=== PATIENT | male | born 1940 | race Caucasian/White ===

== ENCOUNTER 2023-03-22 13:00 | Inpatient (IN) | payer MEDICARE ==
[~2023-03-22] VITALS: Ht 165.1 cm; Wt 73.8 kg
[2023-03-22] VITALS (8 sets, daily range): BP systolic 124–133; BP diastolic 58–72; PULSE 89–106; RESP 18–43; TEMP 97.4–97.9; O2SAT 97–99
[~2023-03-22 13:00] MED LIST: AMLO10TA PO; ATOR40TA PO; CARV12.549 PO; CHOL200035 PO; FURO40TA4 PO; GABA-530 PO; GLIP5TAB13 PO; HYDR-3973 PO; INSU100V9 SQ; LISI20TA28 PO; METF-436 PO; POTA-205 PO; RIVA15TA PO; SPIR25TA5 PO
--- NOTE | 2023-03-22 13:10 | NUR ---
ATTEMPT EKG, PT IS TRIPODDING AND UNABLE TO GET AN ACCURATE READ. WILL ATTEMPT AGAIN AFTER BREATHING TREATMENT.
[2023-03-22] MEDS ORDERED: furosemide 20 MG/2 ML vial IV ONE (13:15)
[2023-03-22] MEDS ORDERED: nitroGLYCERIN-Tridil 50MG/D5W 250 ML IV SCH (13:15)
[2023-03-22] MEDS ORDERED: furosemide 10 MG/1 ML 10ml inj IV ONE (13:15)
[2023-03-22 13:29] LABS: BASOPHILS # (AUTO) 0.1 X10'3 (0-0.2); BASOPHILS % (AUTO) 0.4 % (0-1); EOSINOPHILS # (AUTO) 0.3 X10'3 (0-0.9); EOSINOPHILS % (AUTO) 1.8 % (0-6); HEMATOCRIT 44.3 % (42.0-52.0); HEMOGLOBIN 14.3 g/dl (14.0-17.9); LYMPHOCYTES # (AUTO) 0.7 X10'3 (1.1-4.8); LYMPHOCYTES % (AUTO) 4.9 % (21-51); MEAN CORPUSCULAR HEMOGLOBIN 28.9 PG (27.0-31.0); MEAN CORPUSCULAR HGB CONC 32.2 g/dL (33.0-36.5); MEAN CORPUSCULAR VOLUME 89.7 FL (78-98); MEAN PLATELET VOLUME 8.1 FL (7.4-10.4); MONOCYTES # (AUTO) 0.7 X10'3 (0-0.9); MONOCYTES % (AUTO) 4.7 % (2-12); NEUTROPHILS # (AUTO) 12.5 X10'3 (1.8-7.7); NEUTROPHILS % (AUTO) 88.2 % (42-75); PLATELET COUNT 263 X10'3 (140-440); RED BLOOD COUNT 4.93 X10'6 (4.70-6.10); RED CELL DISTRIBUTION WIDTH 15.9 % (11.5-14.5); WHITE BLOOD COUNT 14.2 X10'3 (4.5-11.0)
[2023-03-22 13:41] LABS: ALANINE AMINOTRANSFERASE 21 U/L (12-78); ALBUMIN 3.3 G/DL (3.4-5.0); ALBUMIN/GLOBULIN RATIO 0.7 (1.1-1.5); ALKALINE PHOSPHATASE 144 IU/L (46-116); ANION GAP 15 (8-16); ASPARTATE AMINO TRANSFERASE 15 U/L (10-37); BILIRUBIN,TOTAL 1.1 MG/DL (0.1-1.0); BLOOD UREA NITROGEN 41 MG/DL (7-18); BUN/CREATININE RATIO 22.5 (10.0-20.0); CALCIUM 9.6 MG/DL (8.5-10.1); CHLORIDE 99 MMOL/L (99-107); CREATININE 1.82 MG/DL (0.60-1.10); GLUCOSE 308 MG/DL (70-104); POTASSIUM 4.8 MMOL/L (3.5-5.1); SODIUM 137 MMOL/L (135-145); TOTAL PROTEIN 7.8 G/DL (6.4-8.2); eGFR 36 ML/MIN
[2023-03-22] MEDS ORDERED: magnesium 4gm in 100ml NS 100 ML IV PRN (14:10)
[2023-03-22] MEDS ORDERED: acetaminophen 325mg tablet PO PRN ×3 (14:10)
[2023-03-22] MEDS ORDERED: potassium Cl 40MEQ/1/2NS 520ml 520 ML IV PRN (14:10)
[2023-03-22] MEDS ORDERED: magnesium Cl slow-release 64mg tablet PO PRN (14:10)
[2023-03-22] MEDS ORDERED: morphine 4 MG/ML inj SYRINge IV PRN (14:10)
[2023-03-22] MEDS ORDERED: morphine 2 MG/ML inj. syringe IV PRN (14:10)
[2023-03-22] MEDS ORDERED: ondansetron/PF 4mg/2ml inj IV PRN ×2 (14:10)
[2023-03-22] MEDS ORDERED: potassium Cl 20 mEq SR tablet PO PRN ×2 (14:10)
[2023-03-22] MEDS ORDERED: magnesium hydroxide 30ml (MOM) UD suspension PO PRN ×2 (14:10)
[2023-03-22] MEDS ORDERED: LidoCAINE 2% Topical Jelly 11mL syringe TOP ONE (14:10)
[2023-03-22] MEDS ORDERED: magnesium 2GM in 50ml NS 50 ML IV PRN (14:10)
--- NOTE | 2023-03-22 14:43 | NUR ---
attempted to call report was told the nurse is eating lunch at this time.
--- NOTE | 2023-03-22 14:55 | NUR ---
attempted to call report again, stated nurse is still at lunch and no one else is available to take report.
--- NOTE | 2023-03-22 15:02 | NUR ---
ICU NOT ANSWERING
--- NOTE | 2023-03-22 15:10 | NUR ---
NOTIFIED RT, NO ANSWER, LEFT PAGE AND CALLED TWICE
--- NOTE | 2023-03-22 16:22 | NUR ---
Admission status of patient changed from ICU to PCU. Report called to ANISHA Moreno. Transferred patient to room [address] [facility], attached to portable monitor, pt. hemodynamically stable. ANISHA Escamilla at bedside upon transfer.
[2023-03-22] MEDS ORDERED: FURO-149 PO (17:14)
[2023-03-22] MEDS ORDERED: GLIP10TA11 PO (17:14)
[2023-03-22] MEDS ORDERED: METF-438 PO (17:14)
[2023-03-22] MEDS ORDERED: ATOR20TA66 PO (17:21)
[2023-03-22] MEDS ORDERED: RIVA15TA PO (17:21)
[2023-03-22] MEDS ORDERED: POTA-206 PO (17:21)
[2023-03-22] MEDS ORDERED: GABA-530 PO (17:21)
[2023-03-22] MEDS ORDERED: LISI20TA28 PO (17:22)
[2023-03-22] MEDS ORDERED: AMLO10TA13 PO (17:24)
[2023-03-22] MEDS ORDERED: CARV-50 PO (17:24)
[2023-03-22] MEDS ORDERED: SPIR25TA5 PO (17:24)
[2023-03-22] MEDS ORDERED: CHOL400T57 PO (17:24)
[2023-03-22] MEDS ORDERED: INSU100V9 SQ (17:25)
[2023-03-22] MEDS ORDERED: DOCU100C38 PO (17:25)
[2023-03-22] MEDS ORDERED: VITAMIN D3 PO (17:26)
[2023-03-22] MEDS ORDERED: dextrose 50%-water 50ml dispensing syringe IV PRN ×2 (19:10)
[2023-03-22] MEDS ORDERED: MESSAGE TO PHARMACY PO ONE (19:10)
[2023-03-22] MEDS ORDERED: glucagon, human recombinant 1mg kit SUBCUT PRN (19:10)
[2023-03-22] MEDS ORDERED: DEXTROSE 15 GM of carb/4 tabs (each vial/BOTTLE has 4 tablets) PO PRN ×2 (19:10)
[2023-03-22 20:00] LABS: ABG BASE EXCESS -0.3 mmol/L (-2.0-2.0); ABG HCO3 23.5 mmol/L (22.0-26.0); ABG OXYGEN SATURATION 97.8 % (94-97); ABG PCO2 (T) 34.8 mmHg (35.0-48.0); ABG PO2 (T) 100.8 mmHg (75.0-100.0); ALLEN'S TEST Modified; FCOHb 0.6 % (0.0-3.9); FMetHb 0.3 % (0.0-1.5); FO2Hb 96.9 % (94-97); PATIENT TEMPERATURE 36.3; TOTAL HEMOGLOBIN 14.4 G/dl (14.0-17.9)
[2023-03-22] MEDS: docusate sod 100mg capsule PO SCH (20:00)
[2023-03-22] MEDS ORDERED: furosemide 40mg/4ml inj IV ONE (20:00)
[2023-03-22] MEDS: K and/or MAG REPLACEMENT MC SCH (20:00)
[2023-03-22] MEDS: CefTRIAXone 2gm/D5W 50ml BAG 50 ML IV SCH (22:51)
[2023-03-22] MEDS: azithromycin/NS 500mg/250ml 250 ML IV SCH (23:51)
[2023-03-23] VITALS (12 sets, daily range): BP systolic 99–133; BP diastolic 53–72; PULSE 61–108; RESP 21–38; TEMP 97.3–98.1; O2SAT 93–99
[2023-03-23] MEDS: insulin glargine (Lantus) pen - multi-dose SQ SCH ×2 (00:16→21:52)
--- NOTE | 2023-03-23 06:27 | NUR ---
Problems reprioritized. Patient report given, questions answered & plan of care reviewed with Kale RN.
--- NOTE | 2023-03-23 06:27 | NUR ---
Patient in room PCU 3011. I have received report from ASHLEY LANCASTER and had the opportunity to ask questions and assume patient care.
[2023-03-23 06:51] LABS: ALBUMIN 2.8 G/DL (3.4-5.0); ANION GAP 12 (8-16); BLOOD UREA NITROGEN 41 MG/DL (7-18); BUN/CREATININE RATIO 22.2 (10.0-20.0); CALCIUM 9.1 MG/DL (8.5-10.1); CHLORIDE 99 MMOL/L (99-107); CREATININE 1.85 MG/DL (0.60-1.10); GLUCOSE 290 MG/DL (70-104); MAGNESIUM 1.8 MG/DL (1.5-2.4); SODIUM 136 MMOL/L (135-145); TOTAL CARBON DIOXIDE 25.5 MMOL/L (24-32); eGFR 35 ML/MIN
[2023-03-23] MEDS: rivaroxaban 10mg tablet PO SCH (07:15)
[2023-03-23] MEDS: pantoprazole 40mg Tablet.DR PO SCH (07:15)
[2023-03-23] MEDS: docusate sod 100mg capsule PO SCH ×2 (07:15→20:00)
[2023-03-23] MEDS: lisinopril 20mg tablet PO SCH (07:16)
[2023-03-23] MEDS: CefTRIAXone 2gm/D5W 50ml BAG 50 ML IV SCH (07:17)
[2023-03-23] MEDS: azithromycin/NS 500mg/250ml 250 ML IV SCH (07:17)
[2023-03-23] MEDS: furosemide 20 MG/2 ML vial IV SCH ×3 (07:17→20:00)
[2023-03-23] MEDS: K and/or MAG REPLACEMENT MC SCH ×2 (08:00→20:00)
[2023-03-23] MEDS: insulin Lispro (HumaLOG) vial - multi-dose SQ SCH ×3 (08:41→19:32)
[2023-03-23] MEDS: spironolactone 25 MG tablet PO SCH (10:14)
--- NOTE | 2023-03-23 12:36 | NUR ---
DM Consult: Pt hx DM A1C 8.0%; A1C appropriate given advanced age. Addendum: 03/23/23 at [address] Amended: Links added.
--- NOTE | 2023-03-23 18:16 | NUR ---
Problems reprioritized. Patient report given, questions answered & plan of care reviewed with Josh LANCASTER.
[2023-03-24] VITALS (13 sets, daily range): BP systolic 94–160; BP diastolic 54–76; PULSE 55–90; RESP 16–26; TEMP 97.2–98; O2SAT 94–99
[2023-03-24] MEDS: HYDROcodone/acetaminophen 5mg/325mg tablet PO PRN ×3 (01:43→20:12)
--- NOTE | 2023-03-24 04:45 | NUR ---
PT WOKE UP HUNGRY WANTING A P,B,& J. I INFORMED HIM THAT WAS UNAVAILABLE. HE ATE 1 YOGURT, A CHEDDAR CHEESE AND 4 SALTINE CRACKERS.
[2023-03-24 06:09] LABS: BASOPHILS # (AUTO) 0.1 X10'3 (0-0.2); BASOPHILS % (AUTO) 0.5 % (0-1); EOSINOPHILS # (AUTO) 0.2 X10'3 (0-0.9); EOSINOPHILS % (AUTO) 1.8 % (0-6); HEMATOCRIT 37.5 % (42.0-52.0); HEMOGLOBIN 12.5 g/dl (14.0-17.9); LYMPHOCYTES # (AUTO) 1.3 X10'3 (1.1-4.8); LYMPHOCYTES % (AUTO) 10.6 % (21-51); MEAN CORPUSCULAR HEMOGLOBIN 29.6 PG (27.0-31.0); MEAN CORPUSCULAR HGB CONC 33.3 g/dL (33.0-36.5); MEAN CORPUSCULAR VOLUME 88.9 FL (78-98); MONOCYTES % (AUTO) 8.2 % (2-12); NEUTROPHILS # (AUTO) 9.3 X10'3 (1.8-7.7); NEUTROPHILS % (AUTO) 78.9 % (42-75); PLATELET COUNT 203 X10'3 (140-440); RED BLOOD COUNT 4.22 X10'6 (4.70-6.10); RED CELL DISTRIBUTION WIDTH 16.2 % (11.5-14.5); WHITE BLOOD COUNT 11.8 X10'3 (4.5-11.0)
--- NOTE | 2023-03-24 06:25 | NUR ---
Problems reprioritized. Patient report given, questions answered & plan of care reviewed with JOEY. Addendum: 03/24/23 at 0625 by Jonatan Ignacio RN Amended: Links added.
[2023-03-24 06:31] LABS: ALBUMIN 2.4 G/DL (3.4-5.0); ANION GAP 11 (8-16); BLOOD UREA NITROGEN 49 MG/DL (7-18); BUN/CREATININE RATIO 25.1 (10.0-20.0); CHLORIDE 101 MMOL/L (99-107); CREATININE 1.95 MG/DL (0.60-1.10); GLUCOSE 199 MG/DL (70-104); MAGNESIUM 1.8 MG/DL (1.5-2.4); POTASSIUM 3.5 MMOL/L (3.5-5.1); SODIUM 137 MMOL/L (135-145); TOTAL CARBON DIOXIDE 24.9 MMOL/L (24-32); eGFR 33 ML/MIN
[2023-03-24] MEDS: CefTRIAXone 2gm/D5W 50ml BAG 50 ML IV SCH (08:00)
[2023-03-24] MEDS: K and/or MAG REPLACEMENT MC SCH ×2 (08:00→19:22)
[2023-03-24] MEDS: docusate sod 100mg capsule PO SCH ×2 (08:00→19:22)
[2023-03-24] MEDS: rivaroxaban 10mg tablet PO SCH (08:01)
[2023-03-24] MEDS: lisinopril 20mg tablet PO SCH (08:01)
[2023-03-24] MEDS: pantoprazole 40mg Tablet.DR PO SCH (08:02)
[2023-03-24] MEDS: furosemide 20 MG/2 ML vial IV SCH ×2 (08:02→19:24)
[2023-03-24] MEDS: spironolactone 25 MG tablet PO SCH (08:02)
[2023-03-24] MEDS: azithromycin/NS 500mg/250ml 250 ML IV SCH (08:53)
[2023-03-24] MEDS: insulin Lispro (HumaLOG) vial - multi-dose SQ SCH ×3 (08:57→19:21)
--- NOTE | 2023-03-24 11:56 | NUR ---
Zuluaga catheter removed at this time.
--- NOTE | 2023-03-24 18:04 | NUR ---
Problems reprioritized. Patient report given, questions answered & plan of care reviewed with Josh LANCASTER.
[2023-03-24] MEDS: insulin glargine (Lantus) pen - multi-dose SQ SCH (21:18)
[2023-03-25] VITALS (10 sets, daily range): BP systolic 105–139; BP diastolic 74–91; PULSE 73–89; RESP 14–24; TEMP 96.8–97.8; O2SAT 97–100
[2023-03-25] MEDS ORDERED: HYDROcodone/acetaminophen 5mg/325mg tablet PO PRN (02:20)
--- NOTE | 2023-03-25 06:33 | NUR ---
Problems reprioritized. Patient report given, questions answered & plan of care reviewed with NIKOLAI. Addendum: 03/25/23 at 0633 by Jonatan Ignacio RN Amended: Links added.
--- NOTE | 2023-03-25 06:49 | NUR ---
Problems reprioritized. Patient report given, questions answered & plan of care reviewed with NIKOLAI. Addendum: 03/25/23 at 0650 by Jonatan Ignacio RN Amended: Links added.
[2023-03-25 07:00] LABS: ALBUMIN 2.6 G/DL (3.4-5.0); ANION GAP 10 (8-16); BLOOD UREA NITROGEN 50 MG/DL (7-18); BUN/CREATININE RATIO 28.1 (10.0-20.0); CALCIUM 9.3 MG/DL (8.5-10.1); CHLORIDE 102 MMOL/L (99-107); CREATININE 1.78 MG/DL (0.60-1.10); GLUCOSE 128 MG/DL (70-104); MAGNESIUM 2.1 MG/DL (1.5-2.4); POTASSIUM 3.8 MMOL/L (3.5-5.1); SODIUM 140 MMOL/L (135-145); TOTAL CARBON DIOXIDE 27.6 MMOL/L (24-32); eGFR 37 ML/MIN
[2023-03-25 07:04] LABS: BASOPHILS % (AUTO) 0.4 % (0-1); EOSINOPHILS # (AUTO) 0.6 X10'3 (0-0.9); EOSINOPHILS % (AUTO) 5.9 % (0-6); HEMATOCRIT 39.9 % (42.0-52.0); HEMOGLOBIN 13.2 g/dl (14.0-17.9); LYMPHOCYTES # (AUTO) 1.2 X10'3 (1.1-4.8); LYMPHOCYTES % (AUTO) 13.1 % (21-51); MEAN CORPUSCULAR HEMOGLOBIN 29.4 PG (27.0-31.0); MEAN CORPUSCULAR HGB CONC 33.1 g/dL (33.0-36.5); MEAN CORPUSCULAR VOLUME 88.9 FL (78-98); MEAN PLATELET VOLUME 8.2 FL (7.4-10.4); MONOCYTES # (AUTO) 0.8 X10'3 (0-0.9); MONOCYTES % (AUTO) 8.4 % (2-12); NEUTROPHILS # (AUTO) 6.8 X10'3 (1.8-7.7); NEUTROPHILS % (AUTO) 72.2 % (42-75); PLATELET COUNT 232 X10'3 (140-440); RED BLOOD COUNT 4.49 X10'6 (4.70-6.10); RED CELL DISTRIBUTION WIDTH 16.2 % (11.5-14.5); WHITE BLOOD COUNT 9.4 X10'3 (4.5-11.0)
--- NOTE | 2023-03-25 07:36 | NUR ---
Patient in room PCU 3011. I have received report from Josh LANCASTER and had the opportunity to ask questions and assume patient care.
[2023-03-25] MEDS ORDERED: azithromycin 250mg tablet PO SCH (08:00)
[2023-03-25] MEDS: K and/or MAG REPLACEMENT MC SCH (08:00)
[2023-03-25] MEDS: furosemide 20 MG/2 ML vial IV SCH (08:07)
[2023-03-25] MEDS: CefTRIAXone 2gm/D5W 50ml BAG 50 ML IV SCH (08:07)
[2023-03-25] MEDS: rivaroxaban 10mg tablet PO SCH (08:07)
[2023-03-25] MEDS: pantoprazole 40mg Tablet.DR PO SCH (08:08)
[2023-03-25] MEDS: docusate sod 100mg capsule PO SCH (08:08)
[2023-03-25] MEDS: spironolactone 25 MG tablet PO SCH (08:09)
[2023-03-25] MEDS: lisinopril 20mg tablet PO SCH (08:09)
[2023-03-25] MEDS: insulin Lispro (HumaLOG) vial - multi-dose SQ SCH (10:40)
--- NOTE | 2023-03-25 14:01 | NUR ---
Pt has been transferred to [facility] for rehab after hospital. Family was contacted and notified of the transfer. All belongings gathered and sent with pt. Pt left the floor accompanied by two [facility] staff destined for [facility].
[2023-03-25] MEDS ORDERED: furosemide 40mg/4ml inj IV SCH (20:00)
== END 2023-03-25 13:55 | DRG 177 ==
LOC: ER 13:01 → EDBD 13:01 → ED HOLD 14:25 → EDBEDREQ 14:38 → PCU 3S 15:52
PROVIDERS: ADMIT Internal Medicine Critical Care Medicine; ATTEND Internal Medicine Critical Care Medicine
PROC: 5A09357 Assistance with Respiratory Ventilation, Less than 24 Consecutive Hours, Continuous Positive Airway Pressure (ICD-10-PCS; principal; 2023-03-22)
PROC: 5A09357 Assistance with Respiratory Ventilation, Less than 24 Consecutive Hours, Continuous Positive Airway Pressure (ICD-10-PCS; 2023-03-23)
PROC: 5A09357 Assistance with Respiratory Ventilation, Less than 24 Consecutive Hours, Continuous Positive Airway Pressure (ICD-10-PCS; 2023-03-24)
PROC: 5A09357 Assistance with Respiratory Ventilation, Less than 24 Consecutive Hours, Continuous Positive Airway Pressure (ICD-10-PCS; 2023-03-25)
DX: J69.0 Pneumonitis due to inhalation of food and vomit (principal); I50.23 Acute on chronic systolic (congestive) heart failure; J96.01 Acute respiratory failure with hypoxia; I13.0 Hypertensive heart and chronic kidney disease with heart failure and stage 1 through stage 4 chronic kidney disease, or unspecified chronic kidney disease; I48.21 Permanent atrial fibrillation; E11.22 Type 2 diabetes mellitus with diabetic chronic kidney disease; N18.9 Chronic kidney disease, unspecified; M81.0 Age-related osteoporosis without current pathological fracture
CPT/HCPCS: 36415; 36600; 71045; 80048; 80053; 82803; 82948; 83036; 83735; 83880; 84145; 84484; 85018; 85025; 87040; 87081; 87088; 93306; 94660; 94760; 97110; 97116; 97161; 97530; 99285; A4314; A4615; G0378; J0456; J0696; J1815; J1940; J3490; J7040

== ENCOUNTER 2024-03-09 15:16 | Inpatient (IN) | payer MEDICARE ==
[~2024-03-09] VITALS: Ht 177.8 cm; Wt 75.0 kg
[~2024-03-09 15:16] MED LIST changes: -AMLO10TA PO; +AMLO10TA13 PO; +ATOR20TA66 PO; -ATOR40TA PO; +CARV-50 PO; -CARV12.549 PO; -CHOL200035 PO; +CLOP75TA34 PO; +DOCU100C38 PO; +FURO-149 PO; -FURO40TA4 PO; +GLIP10TA11 PO; -GLIP5TAB13 PO; -HYDR-3973 PO; -METF-436 PO; +METF-438 PO; -POTA-205 PO; +POTA-206 PO; +VITAMIN D3 PO
[2024-03-09 15:54] LABS: BASOPHILS % (AUTO) 0.3 % (0-1); EOSINOPHILS # (AUTO) 0.4 X10'3 (0-0.9); HEMATOCRIT 37.2 % (42.0-52.0); LYMPHOCYTES # (AUTO) 1.1 X10'3 (1.1-4.8); LYMPHOCYTES % (AUTO) 7.9 % (21-51); MEAN CORPUSCULAR HEMOGLOBIN 29.8 PG (27.0-31.0); MEAN CORPUSCULAR HGB CONC 32.2 g/dL (33.0-36.5); MEAN CORPUSCULAR VOLUME 92.6 FL (78-98); MONOCYTES # (AUTO) 1.5 X10'3 (0-0.9); MONOCYTES % (AUTO) 11.4 % (2-12); NEUTROPHILS # (AUTO) 10.5 X10'3 (1.8-7.7); NEUTROPHILS % (AUTO) 77.4 % (42-75); PLATELET COUNT 163 X10'3 (140-440); RED BLOOD COUNT 4.02 X10'6 (4.70-6.10); WHITE BLOOD COUNT 13.5 X10'3 (4.5-11.0)
[2024-03-09] MEDS ORDERED: METF-436 PO (16:09)
[2024-03-09] MEDS ORDERED: LANTUS SQ (16:09)
[2024-03-09] MEDS ORDERED: POTA-192 PO (16:09)
[2024-03-09] MEDS ORDERED: HYDR-3965 PO (16:09)
[2024-03-09 16:14] LABS: ALBUMIN 2.5 G/DL (3.4-5.0); ANION GAP 9 (8-16); BLOOD UREA NITROGEN 94 MG/DL (7-18); BUN/CREATININE RATIO 41.8 (10.0-20.0); CALCIUM 8.9 MG/DL (8.5-10.1); CHLORIDE 101 MMOL/L (99-107); CREATININE 2.25 MG/DL (0.60-1.10); GLUCOSE 357 MG/DL (70-104); POTASSIUM 5.2 MMOL/L (3.5-5.1); PRO BRAIN NATRIURETIC PEPTIDE 4807 PG/ML (0-450); SODIUM 133 MMOL/L (135-145); TOTAL CARBON DIOXIDE 23.3 MMOL/L (24-32); eCRCL 25 ML/MIN; eGFR 28 ML/MIN
[2024-03-09] MEDS ORDERED: iohexol 350MG/ML 100ml bottle IV ONE (16:18)
[2024-03-09] MEDS: CefTRIAXone 2gm/D5W 50ml BAG 50 ML IV ONE (17:49)
[2024-03-09] MEDS ORDERED: potassium Cl 20 mEq SR tablet PO PRN ×2 (20:20)
[2024-03-09] MEDS ORDERED: potassium Cl 40MEQ/1/2NS 520ml 520 ML IV PRN (20:20)
[2024-03-09] MEDS ORDERED: magnesium hydroxide 30ml (MOM) UD suspension PO PRN (20:20)
[2024-03-09] MEDS ORDERED: acetaminophen 325mg tablet PO PRN (20:20)
[2024-03-09] MEDS ORDERED: magnesium Cl slow-release 64mg tablet PO PRN (20:20)
[2024-03-09] MEDS ORDERED: mag hydrox/Alum hydrox/simeth 30ml oral suspension PO PRN (20:20)
[2024-03-09] MEDS ORDERED: magnesium sulf-water 4G/100mL 100 ML IV PRN (20:20)
[2024-03-09] MEDS ORDERED: magnesium sulf-water 2g/50mL 50 ML IV PRN (20:20)
[2024-03-09] MEDS ORDERED: dextrose 50%-water 50ml dispensing syringe IV PRN ×2 (20:50)
[2024-03-09] MEDS ORDERED: glucagon, human recombinant 1mg kit SUBCUT PRN (20:50)
[2024-03-09] MEDS ORDERED: DEXTROSE 15 GM of carb/4 tabs (each vial/BOTTLE has 4 tablets) PO PRN ×2 (20:50)
[2024-03-09] MEDS: atorvastatin 20mg tablet PO SCH (21:00)
[2024-03-09] MEDS: gabapentin 100mg capsule PO SCH (21:00)
[2024-03-09] MEDS ORDERED: furosemide 10 MG/1 ML 10ml inj IV ONE (21:05)
[2024-03-09 21:19] LABS: ALANINE AMINOTRANSFERASE 13 U/L (12-78); ALBUMIN/GLOBULIN RATIO 0.6 (1.1-1.5); ALKALINE PHOSPHATASE 81 IU/L (46-116); ASPARTATE AMINO TRANSFERASE 19 U/L (10-37); BILIRUBIN,DIRECT 0.2 MG/DL (0-0.3); BILIRUBIN,TOTAL 0.8 MG/DL (0.1-1.0); TOTAL PROTEIN 6.8 G/DL (6.4-8.2)
[2024-03-09 22:00] VITALS: BP 118/69; PULSE 72; RESP 18; RESP 26; TEMP 97.2; O2SAT 96; O2SAT 98
[2024-03-09] MEDS: ondansetron/PF 4mg/2ml inj IV PRN (22:35)
[2024-03-09] MEDS: morphine 2 MG/ML inj. syringe IV PRN (22:35)
[2024-03-09 22:42] VITALS: PULSE 72; RESP 23; O2SAT 98
[2024-03-09] MEDS: insulin glargine (Lantus) pen - multi-dose SQ SCH (22:47)
[2024-03-09] MEDS: furosemide 20 MG/2 ML vial IV ONE (22:50)
[2024-03-09] MEDS: ipratropium/albuterol 3ml nebule NEB ONE (22:53)
[2024-03-09 22:54] VITALS: PULSE 78; RESP 22; O2SAT 98
[2024-03-09 23:02] VITALS: PULSE 66; RESP 22
[2024-03-10 02:00] VITALS: BP 117/69; PULSE 86; RESP 18; TEMP 97; O2SAT 97
[2024-03-10 04:02] VITALS: PULSE 75; RESP 27; O2SAT 97
[2024-03-10 07:26] LABS: BASOPHILS # (AUTO) 0.1 X10'3 (0-0.2); BASOPHILS % (AUTO) 0.6 % (0-1); EOSINOPHILS # (AUTO) 0.4 X10'3 (0-0.9); EOSINOPHILS % (AUTO) 4.1 % (0-6); HEMATOCRIT 36.6 % (42.0-52.0); HEMOGLOBIN 11.8 g/dl (14.0-17.9); LYMPHOCYTES % (AUTO) 9.9 % (21-51); MEAN CORPUSCULAR HEMOGLOBIN 29.7 PG (27.0-31.0); MEAN CORPUSCULAR HGB CONC 32.3 g/dL (33.0-36.5); MEAN CORPUSCULAR VOLUME 92.1 FL (78-98); MEAN PLATELET VOLUME 9.3 FL (7.4-10.4); MONOCYTES % (AUTO) 9.7 % (2-12); NEUTROPHILS # (AUTO) 7.9 X10'3 (1.8-7.7); NEUTROPHILS % (AUTO) 75.7 % (42-75); PLATELET COUNT 166 X10'3 (140-440); RED BLOOD COUNT 3.97 X10'6 (4.70-6.10); RED CELL DISTRIBUTION WIDTH 16.1 % (11.5-14.5); WHITE BLOOD COUNT 10.5 X10'3 (4.5-11.0)
[2024-03-10 07:34] VITALS: PULSE 72; RESP 22; O2SAT 98
[2024-03-10 07:49] LABS: ALBUMIN 2.4 G/DL (3.4-5.0); ANION GAP 9 (8-16); BLOOD UREA NITROGEN 102 MG/DL (7-18); BUN/CREATININE RATIO 46.4 (10.0-20.0); CALCIUM 8.9 MG/DL (8.5-10.1); CHLORIDE 104 MMOL/L (99-107); GLUCOSE 259 MG/DL (70-104); POTASSIUM 5.6 MMOL/L (3.5-5.1); SODIUM 137 MMOL/L (135-145); TOTAL CARBON DIOXIDE 23.7 MMOL/L (24-32); eCRCL 25 ML/MIN; eGFR 29 ML/MIN
[2024-03-10 08:00] VITALS: RESP 25
[2024-03-10] MEDS ORDERED: K and/or MAG REPLACEMENT MC SCH (08:00)
[2024-03-10] MEDS ORDERED: docusate sod 100mg capsule PO SCH (08:00)
[2024-03-10] MEDS ORDERED: amLODIPine 5mg tablet PO SCH (08:00)
[2024-03-10] MEDS: methylPREDNISolone sod succ 125mg/2ml vial IV ONE (08:00)
[2024-03-10] MEDS ORDERED: CefTRIAXone/D5W-Rocephin 1gm 50 ML IV SCH (08:00)
[2024-03-10] MEDS ORDERED: carVEDilol 12.5mg tablet PO SCH (08:00)
[2024-03-10] MEDS ORDERED: furosemide 40mg/4ml inj IV SCH (08:00)
[2024-03-10] MEDS ORDERED: albuterol 2.5 MG/3 ML nebule NEB PRN (08:00)
[2024-03-10] MEDS ORDERED: heparin, porcine 5000 units/ml vial SQ SCH (08:00)
[2024-03-10] MEDS ORDERED: budesonide 0.5mg/2ml UD nebule IH SCH (08:00)
[2024-03-10] MEDS ORDERED: LORazepam 0.5 MG tablet PO PRN (08:40)
[2024-03-10] MEDS ORDERED: hyoscyamine 0.125mg TAB.SUBL SL PRN (08:40)
[2024-03-10] MEDS ORDERED: INSULIN LISPRO 100 UNIT/ML INSULN.PEN MULTI-DOSE SQ SCH (09:00)
[2024-03-10 11:00] VITALS: BP 99/60; PULSE 89; RESP 30; TEMP 98.7; O2SAT 98
[2024-03-10] MEDS ORDERED: ipratropium/albuterol 3ml nebule NEB SCH (11:00)
[2024-03-10] MEDS: LORazepam 2 mg/ml vial IV PRN (11:25)
[2024-03-10] MEDS: morphine 10mg/0.5ml (conc. morphine) oral syringe PO PRN (13:08)
[2024-03-10 15:52] VITALS: RESP 22
[2024-03-10] MEDS ORDERED: methylPREDNISolone sod succ/PF 40mg inj. IV SCH (16:00)
== END 2024-03-10 15:55 | disposition hospice, home (50) | DRG 189 ==
LOC: ER 15:17 → ED HOLD 20:19 → EDBEDREQ 21:00 → PCU 3S 21:49
PROVIDERS: ADMIT Internal Medicine Critical Care Medicine; ATTEND Family Medicine
PROC: B32T1ZZ Computerized Tomography (CT Scan) of Left Pulmonary Artery using Low Osmolar Contrast (ICD-10-PCS; principal; 2024-03-09)
PROC: B3201ZZ Computerized Tomography (CT Scan) of Thoracic Aorta using Low Osmolar Contrast (ICD-10-PCS; 2024-03-09)
PROC: B32S1ZZ Computerized Tomography (CT Scan) of Right Pulmonary Artery using Low Osmolar Contrast (ICD-10-PCS; 2024-03-09)
PROC: 5A09357 Assistance with Respiratory Ventilation, Less than 24 Consecutive Hours, Continuous Positive Airway Pressure (ICD-10-PCS; 2024-03-09)
DX: J96.21 Acute and chronic respiratory failure with hypoxia (principal); G93.41 Metabolic encephalopathy; J69.0 Pneumonitis due to inhalation of food and vomit; I50.33 Acute on chronic diastolic (congestive) heart failure; I13.0 Hypertensive heart and chronic kidney disease with heart failure and stage 1 through stage 4 chronic kidney disease, or unspecified chronic kidney disease; N18.4 Chronic kidney disease, stage 4 (severe); I48.20 Chronic atrial fibrillation, unspecified; E78.5 Hyperlipidemia, unspecified; G47.33 Obstructive sleep apnea (adult) (pediatric); E87.5 Hyperkalemia; Z66 Do not resuscitate; E11.42 Type 2 diabetes mellitus with diabetic polyneuropathy; E11.22 Type 2 diabetes mellitus with diabetic chronic kidney disease; Z79.84 Long term (current) use of oral hypoglycemic drugs; Z79.899 Other long term (current) drug therapy; Z79.4 Long term (current) use of insulin; Z51.5 Encounter for palliative care; Z95.1 Presence of aortocoronary bypass graft; Z79.01 Long term (current) use of anticoagulants
CPT/HCPCS: 36415; 71045; 71275; 80048; 80076; 82948; 83735; 83880; 84145; 84484; 85025; 87081; 92508; 92616; 93005; 94640; 94660; 94760; 96365; 99285; G0378; J0696; J1815; J1940; J2060; J2270; J2405; Q9967